=== PATIENT | female | born 1940 | race Caucasian/White ===

== ENCOUNTER 2022-04-28 09:49 | Outpatient (CLI) | payer MEDICARE, SELFPAY ==
[2022-04-28 11:22] LABS: Albumin* 4.6 g/dL (3.3-5.0); Chloride* 108 mmol/L (96-114); Potassium* 4.3 mmol/L (3.6-5.1); Sodium* 140 mmol/L (135-149)
[2022-04-28 11:25] LABS: Blood Urea Nitrogen* 36 mg/dL (7-30); Carbon Dioxide* 18 mmol/L (20-32); Creatinine* 1.9 mg/dL (0.5-1.5); Estimated Glomerular Filt Rate 26 ml/min; Glucose* 118 mg/dL (60-115)
[2022-04-28 11:26] LABS: Calcium* 9.5 mg/dL (8.4-10.6); Iron* 54 ug/dL (37-170); Phosphorus* 4.2 mg/dL (2.5-4.5); Uric Acid* 8.5 mg/dL (2.2-8.4)
[2022-04-28 11:35] LABS: Percent Iron Saturation 12 % (20-50); Total Iron Binding Capacity 451 ug/dL (265-497)
[2022-04-28 11:50] LABS: Creatinine Urine 42.5 mg/dL
[2022-04-28 12:01] LABS: Ferritin* 11.5 ng/mL (11.1-264.0)
[2022-04-28 12:24] LABS: Microalbumin Creatinine Ratio 870 mg/g (0-30); Microalbumin Urine 37 mg/dL
== END 2022-04-28 09:50 | disposition home or self-care (01) ==
PROVIDERS: Visit Provider Internal Medicine Nephrology
DX: I10 Essential (primary) hypertension (principal); N18.9 Chronic kidney disease, unspecified; R53.83 Other fatigue
CPT/HCPCS: 80069; 82043; 82570; 82728; 83540; 83550; 84550; 87086

== ENCOUNTER 2022-10-16 10:05 | Outpatient (CLI) | payer MEDICARE, SELFPAY | END 2022-10-16 10:06 | disposition home or self-care (01) | LOC: NFLDREF 10-19 20:00 | PROVIDERS: Visit Provider Internal Medicine Nephrology | DX: D63.1 Anemia in chronic kidney disease (principal); I10 Essential (primary) hypertension; N18.32 Chronic kidney disease, stage 3b | CPT/HCPCS: 80061; 80069; 82043; 82310; 82570; 82728; 83540; 83550; 83970; 84450; 84460; 84550; 87086 ==

== ENCOUNTER 2023-04-23 10:45 | Outpatient (CLI) | payer MEDICARE, SELFPAY | END 2023-04-23 10:46 | disposition home or self-care (01) | LOC: NFLDREF 04-27 06:48 | PROVIDERS: Visit Provider Internal Medicine Nephrology | DX: D63.1 Anemia in chronic kidney disease (principal); I10 Essential (primary) hypertension; N18.32 Chronic kidney disease, stage 3b | CPT/HCPCS: 80069; 82043; 82310; 82570; 83970; 84550 ==

== ENCOUNTER 2023-10-19 10:51 | Outpatient (CLI) | payer MEDICARE, SELFPAY | END 2023-10-19 10:52 | disposition home or self-care (01) | LOC: NFLDREF 11-09 12:43 | PROVIDERS: Visit Provider Internal Medicine Nephrology | DX: N18.32 Chronic kidney disease, stage 3b (principal); D63.1 Anemia in chronic kidney disease; R82.90 Unspecified abnormal findings in urine | CPT/HCPCS: 80069; 82043; 82306; 82310; 82570; 82728; 83540; 83550; 83970; 84450; 84460; 84550; 86140; 87086 ==

== ENCOUNTER 2024-03-29 06:45 | Outpatient (CLI) | payer MEDICARE, SELFPAY | END 2024-03-29 06:46 | disposition home or self-care (01) | PROVIDERS: Visit Provider Family Medicine | DX: R39.89 Other symptoms and signs involving the genitourinary system (principal); N39.0 Urinary tract infection, site not specified | CPT/HCPCS: 87086 ==

== ENCOUNTER 2024-04-25 09:06 | Outpatient (CLI) | payer MEDICARE, SELFPAY ==
--- OUTSIDE RECORDS SUMMARY | 2024-04-28 07:27 | XMS_ITS | Clinical Summary ---
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 Gender Identity Not on file Sexual Orientation Not on file Last Filed Vital Signs Vital Sign Reading Time Taken Comments Blood Pressure 150/74 09/13/2019 6:00 PM CDT Pulse 66 09/13/2019 6:00 PM CDT Temperature 36.7 ??C (98 ??F) 09/13/2019 4:29 PM CDT Respiratory Rate 16 09/13/2019 4:29 PM CDT Oxygen Saturation 96% 09/13/2019 7:45 PM CDT Inhaled Oxygen Concentration - - Weight - - Height - - Body Mass Index - - Plan of Treatment Not on file Insurance [employer] MEDICARE Care Teams Pest Management Supervisor Relationship Specialty Start Date [place] [address] [address] [place] [address] PCP - General Family Practice 09/13/19
--- OUTSIDE RECORDS SUMMARY | 2024-04-28 07:28 | XMS_ITS | Clinical Summary ---
Author Organization [facility] Address [place], [place] [address] Care Team Providers Care Autocad Name Role Phone Pcp, No Primary Care Provider Unavailabl e Allergies Active Allergy Reactions Criticality Noted Date Comments Rabeprazole *Unknown 01/08/2021 Atorvastatin *Unknown 01/08/2021 Sulfa (Sulfonamide Antibiotics) Nausea Only Tramadol Stomach Upset 11/04/2013 Ezetimibe-Simvastatin *Unknown 01/08/2021 Medications Medication Sig Dispensed Refills Start Date End Date Status aspirin (Aspirin EC) 81 mg enteric coated tablet Take 81 mg by mouth once daily with a meal. 02/10/2011 Active ascorbic acid chewable (Vitamin C) 500 mg tablet Chew 500 mg by mouth once daily. 06/16/2011 Active prochlorperazine (COMPAZINE) 5 mg tabletIndications:Abdomin al pain, LLQ (left lower quadrant) TAKE 1 TABLET BY MOUTH EVERY 4 HOURS NEEDED FOR NAUSEA AND VOMITING 90 Tablet 10/30/2021 Active triamcinolone (ARISTOCORT; KENALOG) 0.1 % creamIndications:Rash Apply topically to affected area(s) two times daily. 15 g 04/08/2023 Active pravastatin (PRAVACHOL) 20 mg tabletIndications:Pure hypercholesterolemia TAKE 1 TABLET BY MOUTH ONCE DAILY WITH EVENING MEAL 90 Tablet 03/07/2024 Active Active Problems Problem Noted Date Diagnosed Date Hyperparathyroidism due to renal insufficiency 1 Anemia of chronic renal failure 05/13/2022 Renal osteodystrophy 08/21/2020 Renal agenesis, unilateral 08/21/2020 Sleep related leg cramps 06/06/2019 BERTO (generalized anxiety disorder) 01/15/2019 Chronic kidney disease, stage III (moderate) Pure hypercholesterolemia 02/10/2011 Essential (primary) hypertension 02/10/2011 GERD (gastroesophageal reflux disease) 1 Osteopenia 02/10/2011 Refractive error 04/15/2010 Senile nuclear sclerosis 04/15/2010 Resolved Problems Problem Noted Date Diagnosed Date Resolved Date Acquired absence of kidney 02/17/2019 1 Encounters Date Type Department Care Team Description 03/23/2024 10:20 AM CDT Office Visit [facility] [address] [place] [address] Burt Ceja, OD Eye Exam (CEE) 03/23/2024 Travel 03/03/2024 Refill [facility] [address] [place] [address] José Miguel Morton MD Refill Request (Pravastatin) from Last 3 Months Immunizations Name Administration Dates Next Due Influenza RIV4 (Age 18+ Year s) PRESERV FREE 03/27/2020,03/22/2019 Influenza, High-dose Inactivated 018,03/20/2017,03/18/2016,2012,03/19/2012 Influenza, High-dose Quadriv alent Inactivated 03/30/2022,02/26/2021,04/08/2013,2011 Influenza, IIV3 (Age 6-35 mos) 03/11/2010 Influenza, IIV3 (Age >=3 years) 03/18/2011,03/09 Influenza, Inactivated AIIV4 (Age 65+ Years) Preserv Free 04/08/2023 Pneumococcal Conj 20-valent (Prevnar 20) 04/08/2023 Pneumococcal Poly,23-Valent (Pneumovax) 03/22/2019 Pneumococcal conj 13-Valent (Prevnar 13) 03/31/2018,05/24/2015 Td, Preservative Free (age > = 7 Years) 03/15/2006 Family History Medical History Relation Name Comments Diabetes type II Father Diabetes type II Mother Hypertension Mother Stroke Mother Cancer-breast No Family History Relation Name Status Comments Father Mother Social History Tobacco Use Types Packs/Day Years Used Date Smoking Tobacco: Former Smokeless Tobacco: Never Comments:40 years Alcohol Use Standard Drinks/Week Comments Yes 0 (1 standard drink = 0.6 oz pur e alcohol) rare PHQ-2 Answer Date Recorded PHQ-2 TOTAL SCORE 1 04/08/2023 Social Connections Answer Date Recorded Frequency of Communication with Friends and Fami ly 0 08/09/2021 Financial Resource Strain Answer Date R ecorded Difficulty of Paying Living Expenses 3 08/09/2021 Difficulty of Paying Living Expenses Not on file 08/09/2021 Food Insecurity Answer Date Recorded Worried About Running Out of Food in the Last Ye ar 1 08/09/2021 Transportation Needs Answer Date Record ed Lack of Transportation (Medical) 1 08/09/2021 Housing Stability Answer Date Recorded Unable to Pay for Housing in the Last Year 1 08/09/2021 Sex and Gender Information Value Date Recorded Sex Assigned at Not on file Gender Identity Not on file Sexual Orientation Not on file Obstetrics History Last Filed Vital Signs Vital Sign Reading Time Taken Comments Blood Pressure 124/64 04/08/2023 1:59 PM CDT Pulse 68 04/08/2023 1:59 PM CDT Temperature 36.6 ??C (97.8 ??F) 08/24/2022 2:07 PM CS T Respiratory Rate 16 08/24/2022 2:07 PM FRESH FOOD MANAGER Oxygen Saturation 98% 11/10/2021 9:03 AM CDT Inhaled Oxygen Concentration - - Weight 48.5 kg (107 lb) 04/08/2023 1:59 PM CDT Height 149.9 cm (4' 11) 04/08/2023 1:59 PM CDT Body Mass Index 21.61 04/08/2023 1:59 PM CDT Plan of Treatment Health Maintenance Due Date Last Done Comments Tdap 1950 Zoster (shingles) series for age 50+ (1 of 2) 1989 RSV vaccine for adults or (1 - 1-dose 75+ series) 2014 Tetanus booster 03/15/2016 03/15/2006 COVID-19 vaccine series ( season) 2024 02/26/2021, 01/14/2021 Influenza for age 65+ 02/21/2024 04/08/2023 , 03/30/2022, 02/26/2021, Additional history exists BMI (ht and wt on same day) for age 18+ 04/08/2024 04/08/2023, 11/11/2021, 01/10/2021 Depression screening for age 12+ 04/08/2024 04/08/2023, 11/11/2021, 01/10/2021 Medicare Wellness for age 65+ 04/08/2024 04/08/2023, 11/11/2021 DEXA/DXA scan for age 65+ Completed 11/11/2021 Pneumococcal series for age 65+ Completed 04/08/2023, 03/22/2019, 03/31/2018, Additional history exists Procedures Procedure Name Priority Date/Time Associated Diagnosis Comments XR DXA BONE DENSITY 2 SITES AXIAL Routine 11/11/2021 8:35 AM CDT Menopause from Last 3 Months or Most Recently Relevant to Health Maintenance Results * XR DXA BONE DENSITY 2 SITES AXIAL [25157.1] (11/11/2021 8:35 AM CDT) Anatomical Region Laterality Modality Spine, HIPS, HIPL, HIPR Computed Radiography 11/11/2021 8:35 AM CDT Impressions 11/11/2021 10:08 AM CDT OSTEOPOROSIS. T score meets the World Health Organization (WHO) criteria for osteoporosis at one or more measured sites. The risk of osteoporotic fracture increased approximately two-fold for each SD decrease in T-score. Narrative 11/11/2021 10:08 AM CDT For Patients: As a result of the Cures Act, medical imaging exams and procedure reports are released immediately into your electronic medical record. You may view this report before your referring provider. If you have questions, please contact your health care provider. EXAM: XR DXA BONE DENSITY 2 SITES AXIAL [facility] DATE/TIME: 11/11/2021 8:35 AM INDICATION: B. Height loss greater than 1 inch - R29.890. Menopause. COMPARISON: 06/03/2018. TECHNIQUE: Dual-energy x-ray absorptiometry performed with routine technique. FINDINGS: Lumbar Spine: L1-L4: BMD: 1.117 g/cm2. T-score: -0.5. Z-score: 1.9 RIGHT Hip Total: BMD: 0.625 g/cm2. T-score: -3.0. Z-score: -0.5 RIGHT Hip Femoral neck: BMD: 0.683 g/cm2. T-score: -2.6. Z-score: 0.1 LEFT Hip Total: BMD: 0.702 g/cm2. T-score: -2.4. Z-score: 0.1 LEFT Hip Femoral neck: BMD: 0.667 g/cm2. T-score: -2.7. Z-score: -0.1 WHO Criteria: Normal: T score at or above -1 SD Osteopenia: T score between -1 and -2.5 SD Osteoporosis: T score at or below -2.5 SD COMPARISON: There has been a 3.6% decrease in lumbar spine BMD. There has been a 9.4% decrease in bilateral hip BMD. FRAX Results: Not applicable due to Osteoporosis. Procedure Note Brian Brown MD - 11/11/2021 For Patients: As a result of the Cures Act, medical imagingexams and procedure reports are released immediately into your electronicmedical record. You may view this report before your referring provider.If you have questions, please contact your health care provider. EXAM: XR DXA BONE DENSITY 2 SITES AXIAL LOC[facility] DATE/TIME: 11/11/2021 8:35 AM INDICATION: B. Height loss greater than 1 inch - R29.890. Menopause. COMPARISON: 06/03/2018. TECHNIQUE: Dual-energy x-ray absorptiometry performed with routinetechnique. FINDINGS: Lumbar Spine: L1-L4: BMD: 1.117 g/cm2. T-score: -0.5. Z-score: 1.9 RIGHT Hip Total: BMD: 0.625 g/cm2. T-score: -3.0. Z-score: -0.5 RIGHT Hip Femoral neck: BMD: 0.683 g/cm2. T-score: -2.6. Z-score: 0.1 LEFT Hip Total: BMD: 0.702 g/cm2. T-score: -2.4. Z-score: 0.1 LEFT Hip Femoral neck: BMD: 0.667 g/cm2. T-score: -2.7. Z-score: -0.1 WHO Criteria: Normal: T score at or above -1 SD Osteopenia: T score between -1 and -2.5 SD Osteoporosis: T score at or below -2.5 SD COMPARISON: There has been a 3.6% decrease in lumbar spine BMD. There hasbeen a 9.4% decrease in bilateral hip BMD. FRAX Results: Not applicable due to Osteoporosis. IMPRESSION: OSTEOPOROSIS. T score meets the World Health Organization (WHO) criteriafor osteoporosis at one or more measured sites. The risk of osteoporoticfracture increased approximately two-fold for each SD decrease in T-score. José Miguel Morton MD DEXA from Last 3 Months or Most Recently Relevant to Health Maintenance Care Teams Autocad Relationship Specialty Start Date End Date Pcp, No . PCP - General 01/07/24
--- OUTSIDE RECORDS SUMMARY | 2024-04-28 07:28 | XMS_ITS | Encounter Summary ---
Author Organization [facility] Address [address] [place] [address]. 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 HISTORY OF PRESENT ILLNES S: The patient is a 62 yo white female, who was in her usual state of health until this past week. She had 2 distinct episodes of interscapular pain described as a tightness without radiation associat ed with minimal activity that resolved spontaneously. Today while running down the stairs she develo ped substernal chest tightness. She denies any radiation, but not does recall having some numbness i n both of her jaws related to the interscapular pain episodes that she had earlier in the week. She n otes now that she does not have that with this episode. She does admit to nausea. She denies any fe chris, chills, cough or congestion. She denies any abdominal pain, vomiting, diarrhea, constipation or urinary complaints. There is no change in pain with palpation, movement or inspiration. Denies any trauma. PAST MEDICAL HISTORY: Hypercholesterolemia. MEDICATIONS: Zocor, multivitamins, aspirin, fish oil. ALLERGIES: Sulfa. SOCIAL HISTORY: No alcohol, no tobacco. The patient is retired; she is . FAMILY HISTORY: Noncontributory and negative for cardiovascular disease. REVIEW OF SYS TEMS: See HPI; all other systems are negative. PHYSICAL EXAMINATION: Blood pressure 153/80, pulse 109, respiratory rate 20, temperature 97.8. Generally, the patient is symptom free on arrival statin g that her symptoms lasted perhaps 5 minutes today. Color is good. O2 sats 98% on room air. SKIN is warm and dry. CHEST is nontender to palpation, normal contour; lungs show respiratory rate to be 20 and unlabored; breath sounds equal and clear bilaterally; no wheezes or rales heard. HEART - regular rate and rhythm without murmur or rub. BACK - no tenderness to palpation. ABDOMEN - bowel sounds ar e present, soft, nondistended, nontender, no palpable hepatosplenomegaly or masses. EXTREMITIES - no palpable cords; calves nontender; no pedal edema. NEUROLOGIC exam is intact. PSYCHIATRIC exam is n ormal. ED COURSE: EKG - normal sinus rhythm, 0.5-1.[address] depression in V2 through V6. No ST elev ations. Chest x-ray - normal heart size, lungs clear, white blood count 6,900, hemoglobin 14.5, lipa se 205, amylase 108. Myoglobin 57, troponin less than 0.07. Platelets 295,000. Alkaline phosphatase 53, ALT 14, AST 19, bilirubin 0.5, BUN 18, calcium 9.8, chloride 106, CO2 23, creatinine 1.2, glucos e 136, potassium 3.2, sodium 142. Ultrasound of the gallbladder shows a thickened gallbladder wall a t 4.6 mm, common bile duct normal at 4 mm, no stones; generally absent right kidney; cyst in the low er pole of her left kidney; liver is slightly enlarged. DIAGNOSIS: Chest pain, anterior unstable an kirstin versus myocardial infarction; mild hypokalemia; congenitally absent right kidney. DISPOSITION: The patient is to be admitted to ICU in the care of Dr. Lemus. [id number] _ DONAVAN GODFREY MD [place]: Document: [id number] [place], [place] Name: ERICA TRUJILLO EMERGENCY ROOM ENCOUNTER Page 2 of 2 LCN: [facility]U DSC: [place], [place] Name: MR#: : Admit Date: JUSTIN TRUJILLO [id number] 11/20/2002 Doctor: DONAVAN GODFREY MD EMERGENCY ROOM ENCOUNTER Page 1 of 2 documented in this encounter Plan of Treatment Not on file documented as of this encounter Visit Diagnoses Diagnosis ER Visit- Primary documented in this encounter Care Teams Pressfitter Relationship Specialty Start [place] [address] [place] [address] PCP - General 08/11/11 09/12/19 [place] [address] [place] [address] PCP - General Family Practice 09/13/19 documented as of this encounter
--- OUTSIDE RECORDS SUMMARY | 2024-04-28 07:28 | XMS_ITS | Clinical Summary ---
Author Organization [facility] Address [address] [place] [address] Care Team Providers Care Circular Saw Edge Fuser Name Role Phone Unavailable Primary Care Provider Unavailabl e Source Comments Patient records contain information from all sites at [facility]. For routine questions regarding patient records, call [phone] during business hours, M-F 8:00 AM - 5:00 PM Central Time. Record requests for emergency care only can be directed to [phone] at any time.[facility] Medications pravastatin (PRAVACHOL) 20 mg tablet Take 1 tablet by mouth at bedtime. 04/30/2022 Active Active Problems Problem Noted Date Diagnosed Date Anemia Of Chronic Renal Disease 05/13/2022 Hyperparathyroidism Renal Secondary 05/07/2021 Chronic Kidney Disease (CKD) , Stage 3b Glomerular Filtration Rate (GFR) 30 To 44 08/21/2020 Solitary Kidney Congenital 08/21/2020 Osteodystrophy Renal 08/21/2020 Hypertensive Chronic Kidney Disease With Stage 1 Through Stage 4 Chronic Kidney Disease, Or Unspecified Chronic Kidney Disease 10/17/2014 Overview (11/11/2016): Hypertension (HTN) NOS Social History Tobacco Use Types Packs/Day Years Used Date Smoking Tobacco: Former Nutrition Answer Date Recorded Nutrition: EVOO Fat Source Unknown 08/16 Nutrition: Servings of Fruits/Vegetables per Day Not on file 08/16/2020 Dental Answer Date Recorded Dental: Regular Dentist Unknown 08/16/19 21 Comments Unknown Sex and Gender Information Value Date Recorded Sex Assigned at Not on file Legal Sex Female 9:49 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 Oxygen Saturation - - Inhaled Oxygen Concentration - - Weight 51.9 kg (114 lb 6.7 oz) 05/03/2015 4:24 PM GAME FARM SUPERVISOR Vital sign result from Clinical Notes. Height 147 cm (4' 9.87) 05/03/2015 4:2 4 PM GAME FARM SUPERVISOR Vital sign result from Clinical Notes. Body Mass Index 24.02 05/03/2015 4:24 PM GAME FARM SUPERVISOR Plan of Treatment Upcoming Encounters Date Type Department Care Team (Latest Contact Info) Description 05/18/2024 10:00 AM GAME FARM SUPERVISOR Clinical Communication Virtual Review in [place], [place] [address] [place] [address] 05/23/2024 2:30 PM GAME FARM SUPERVISOR Virtual Visit Division of Nephrology and Hypertension in [place], [place] [address] [place] [phone] Giovanni Russo Jr., D.O. [address] [place] [phone] Health Maintenance Due Date Last Done Comments Zoster Vaccines (1 of 2) 1959 DTaP,Tdap,and Td Vaccines (1 - Tdap) 03/16/2006 03/15/2006 RSV vaccine - (32-36 weeks) or 60+ years (1 - 1-dose 75+ series) 2014 Creatinine Level (Kidney Function Test) 08/09/2022 08/09/2021, 09/13/2019, 02/14/2019 Potassium Level 08/09/2022 08/09/2021, 09/13/2019 Sodium Level 08/09/2022 08/09/2021, 09/13/2019 Depression Screening (Annual PHQ-2) 06/22/2023 Fall Risk Screen (Annual) 06/22/2023 COVID-19 Vaccine ( - season) 2024 02/26/2021, 01/14/2021 Influenza Vaccine (#1) 2024 3, 03/30/2022, 02/26/2021, Additional history exists Office Visit for Blood Pressure Check / Re-check 04/27/2024 04/27/2023 Pneumococcal vaccine (65+ years) Completed 04/08/2023, 03/22/2019, 03/31/2018, Additional history exists IPV Vaccines Aged Out No longer eligi ble based on patient's age to complete this topic Insurance [facility]
--- OUTSIDE RECORDS SUMMARY | 2024-04-28 07:28 | XMS_ITS | Referral Summary ---
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
--- OUTSIDE RECORDS SUMMARY | 2024-04-28 07:28 | XMS_ITS ---
Author Organization [facility] Address [address] [place] [address] Care Team Providers Care Electrification Adviser Name Role Phone Unavailable Unavailable Unavailable Surgery Details Not on file Complications Check Surgery Details section. Procedure Estimated Blood Loss Check Surgery Details section. Procedure Findings Check Surgery Details section. Procedure Specimens Taken Check Surgery Details section.
--- OUTSIDE RECORDS SUMMARY | 2024-04-28 07:28 | XMS_ITS | Referral Summary ---
Author Organization [facility] Address [address] [place] [address] Care Team Providers Care Setup Technician Name Role Phone Unavailable Primary Care Provider Unavailabl e Source Comments Patient records contain information from all sites at [facility]. For routine questions regarding patient records, call [phone] during business hours, M-F 8:00 AM - 5:00 PM Central Time. Record requests for emergency care only can be directed to [phone] at any time.[facility] Medications pravastatin (PRAVACHOL) 20 mg tablet Take [...] on file Legal Sex Female 9:49 AM INSTRUMENT TESTER Gender Identity Not on file Sexual Orientation Not on file Last Filed Vital Signs Vital Sign Reading Time Taken Comments Blood Pressure 121/65 04/27/2023 1:48 PM INSTRUMENT TESTER Pulse 74 04/27/2023 1:48 PM INSTRUMENT TESTER Temperature - - Respiratory Rate 20 05/03/2015 4:24 PM INSTRUMENT TESTER Vital sign result from Clinical Notes. Oxygen Saturation - - Inhaled Oxygen Concentration - - Weight 51.9 kg (114 lb 6.7 oz) 05/03/2015 4:24 PM INSTRUMENT TESTER Vital sign result from Clinical Notes. Height 147 cm (4' 9.87) 05/03/2015 4:2 4 PM INSTRUMENT TESTER Vital sign result from Clinical Notes. Body Mass Index 24.02 05/03/2015 4:24 PM INSTRUMENT TESTER Plan of Treatment Upcoming Encounters Date Type Department Care Team (Latest Contact Info) Description 05/18/2024 10:00 AM INSTRUMENT TESTER Clinical Communication Virtual Review in [place], [place] [address] [place] [address] 05/23/2024 2:30 PM INSTRUMENT TESTER Virtual Visit Division of Nephrology and Hypertension in [place], [place] [address] [place] [phone] Giovanni Russo Jr., D.O. [address] [place] [id number] Insurance [facility]
== END 2024-04-25 09:07 | disposition home or self-care (01) ==
LOC: NFLDREF 04-28 07:26
PROVIDERS: PCP Family Medicine; Referring Provider Family Medicine; Visit Provider Family Medicine
DX: I10 Essential (primary) hypertension (principal); N18.32 Chronic kidney disease, stage 3b; D63.1 Anemia in chronic kidney disease; E78.5 Hyperlipidemia, unspecified
CPT/HCPCS: 80053; 80061; 82306

== ENCOUNTER 2024-08-16 14:35 | Outpatient (CLI) | payer MEDICARE, SELFPAY | END 2024-08-16 14:36 | disposition home or self-care (01) | LOC: NFLDREF 14:36 | PROVIDERS: PCP Family Medicine; Visit Provider Family Medicine | DX: I10 Essential (primary) hypertension (principal); D63.1 Anemia in chronic kidney disease; Q60.0 Renal agenesis, unilateral | CPT/HCPCS: 80048 ==

== ENCOUNTER 2024-09-06 10:15 | Outpatient (CLI) | payer MEDICARE, SELFPAY | END 2024-09-06 10:16 | disposition home or self-care (01) | LOC: NFLDREF 09-07 02:54 | PROVIDERS: PCP Family Medicine; Referring Provider Family Medicine; Visit Provider Family Medicine | DX: I12.9 Hypertensive chronic kidney disease with stage 1 through stage 4 chronic kidney disease, or unspecified chronic kidney disease (principal); N18.32 Chronic kidney disease, stage 3b; D63.1 Anemia in chronic kidney disease; E78.5 Hyperlipidemia, unspecified | CPT/HCPCS: 80048; 82728 ==

== ENCOUNTER 2024-11-02 13:28 | Outpatient (CLI) | payer MEDICARE, SELFPAY ==
--- NOTE | 2024-11-02 14:00 | CRLHL7_ITS ---
For Patients: As a result of the Century Cures Act, medical imaging exams and procedure reports are released immediately into your electronic medical record. You may view this report before your referring provider. If you have questions, please contact your health care provider. XR DXA Bone Mineral Density (BMD) Current height (in): 49.0. Weight (lb): 106.0. Menopause age: 54. Ethnicity: White. 1. Have you had a previous hip or vertebral fracture? No. 2. Have you had any fractures during your adult life which did not result from significant trauma (e.g., auto accident)? No. 3. Did either of your parents have a hip fracture? No. 4. Do you smoke? No. 5. Have you ever taken Glucocorticoids? No. 6. Do you have rheumatoid arthritis? No. 7. Do you have secondary osteoporosis? Yes. 8. Do you drink 3 or more alcoholic drinks per day? No. 9. Are you being treated for osteoporosis? No. 10. Have you ever taken any of the following medications: Actonel, Evista, Fosamax, Miacalcin, Reclast, Boniva, Forteo, HRT (i.e. estrogen/hormone therapy), Protelos, Prolia, Vitamin D, Calcium, other ??? please specify. ANSWER: Yes, Vitamin D, Calcium 11. Do you have any of the following medical conditions: Anorexia or bulimia, asthma or emphysema, end stage renal disease, hyperparathyroidism, any seizure disorders, cancer, inflammatory bowel diseases, hysterectomy, other ??? please specify. ANSWER: No. 12. What was your maximum height (inches)? 60. 13. Do you perform weight bearing exercise regularly? No. 14. Do you regularly consume dairy products? Yes. 15. Do you drink caffeinated beverages? Yes. If female: 16. At what age did your period start? 12. 17. Are you premenopausal? No. 18. How many full term pregnancies have you had? 3. 19. Have you ever missed your period for more than 6 months in a row (not including or menopause)? No. TECHNIQUE: Bone mineral density study was performed using the [employer]. FINDINGS: The results of the study expressed as bone mineral density (BMD) are as follows: Lumbar spine L1 to L4: BMD: 1.014 g/cm2. T-score: -0.3. Z-score: 2.6. Neck Left: BMD: 0.540 g/cm2. T-score: -2.8 . Z-score: -0.3. Right: BMD: 0.618 g/cm2. T-score: -2.1 . Z-score: 0.4. Total Left: BMD: 0.694 g/cm2. T-score: -2.0 . Z-score: 0.3. Right: BMD: 0.668 g/cm2. T-score: -2.2 . Z-score: 0.1. IMPRESSION: Osteoporosis. *Comparison exams done prior to 11/2019 were performed on different unit, [employer]. Socrates Sarah M.D. Diagnostic Radiologist [email or web address] FRANSICO/chi Transcribed: 8:00 a.m. JR/Dictated by: Socrates Sarah MD @ 11/03/2024 9:34:00 AM (Electronically Signed)
--- NOTE | 2024-11-02 14:40 | CRLHL7_ITS ---
For Patients: As a result of the Century Cures Act, medical imaging exams and procedure reports are released immediately into your electronic medical record. You may view this report before your referring provider. If you have questions, please contact your health care provider. COMPARISON: 11/28/2021 TECHNIQUE: Digital mammogram in CC and MLO projections including computer-aided detection (CAD) and tomosynthesis. BREAST COMPOSITION: There are scattered areas of fibroglandular density. FINDINGS: No suspicious findings. ASSESSMENT: BI-RADS 2 Benign RECOMMENDATION: Annual screening mammogram. A lay language report of this examination will be provided to the patient. Dictated by: Socrates Sarah MD @ 11/04/2024 10:00:39 (Electronically Signed)
== END 2024-11-02 13:29 | disposition home or self-care (01) ==
LOC: RAD 13:30
PROVIDERS: PCP Family Medicine; Visit Provider Family Medicine
DX: Z12.31 Encounter for screening mammogram for malignant neoplasm of breast (principal); M81.0 Age-related osteoporosis without current pathological fracture
CPT/HCPCS: 77063; 77067; 77080

== ENCOUNTER 2024-12-01 10:31 | Outpatient (CLI) | payer MEDICARE, SELFPAY | END 2024-12-01 10:32 | disposition home or self-care (01) | LOC: NFLDREF 12-02 01:25 | PROVIDERS: PCP Family Medicine; Referring Provider Family Medicine; Visit Provider Internal Medicine Nephrology | DX: N18.32 Chronic kidney disease, stage 3b (principal); I10 Essential (primary) hypertension; D63.1 Anemia in chronic kidney disease; Z86.39 Personal history of other endocrine, nutritional and metabolic disease; E78.5 Hyperlipidemia, unspecified; R53.83 Other fatigue | CPT/HCPCS: 80061; 80069; 82043; 82570; 84450; 84460; 84550 ==

== ENCOUNTER 2025-01-02 13:20 | Outpatient (CLI) | payer MEDICARE, SELFPAY | END 2025-01-02 13:21 | disposition home or self-care (01) | LOC: NFLDREF 13:21 | PROVIDERS: PCP Family Medicine; Visit Provider Internal Medicine Nephrology | DX: N18.32 Chronic kidney disease, stage 3b (principal); N39.0 Urinary tract infection, site not specified | CPT/HCPCS: 82043; 82570; 87086 ==

== ENCOUNTER 2025-05-23 13:44 | Outpatient (CLI) | payer MEDICARE, SELFPAY | END 2025-05-23 13:45 | disposition home or self-care (01) | PROVIDERS: PCP Family Medicine; Visit Provider Family Medicine | DX: D63.1 Anemia in chronic kidney disease (principal); N18.32 Chronic kidney disease, stage 3b; R00.2 Palpitations; R03.0 Elevated blood-pressure reading, without diagnosis of hypertension | CPT/HCPCS: 80053; 83970; 84439; 84443 ==

== ENCOUNTER 2025-05-24 14:43 | Outpatient (CLI) | payer MEDICARE, SELFPAY | END 2025-05-24 14:44 | disposition home or self-care (01) | LOC: NFLDREF 05-25 13:34 | PROVIDERS: PCP Family Medicine; Referring Provider Family Medicine; Visit Provider Family Medicine | DX: M17.0 Bilateral primary osteoarthritis of knee (principal); N25.81 Secondary hyperparathyroidism of renal origin | CPT/HCPCS: 82306; 84480 ==

== ENCOUNTER 2025-06-12 14:52 | Emergency (ER) | payer MEDICARE, SELFPAY ==
--- OUTSIDE RECORDS SUMMARY | 2011-07-09 05:30 | XMS_ITS | Continuity of Care Document ---
Author Organization [facility] Address [address] [address] [place] [address] Phone Care Team Providers Care Boat Canvas Installer Name Role Phone Unavailable Unavailable Unavailable Allergies, Adverse Reactions, Alerts Substance Reaction Status Criticality Sulfa (Sulfonamide Antibiotics) Active No Information Medications Medication Instructions Dosage Effective Dates (start - stop) Status Comments MiralaxBisacodylMagCit Colon Prep Use as directed - Active lisinopril 2.5 mg Tab take 1 tablet (2.5MG) by oral route every day 2.5 MG - Active aspirin 81 mg Tab take 2 Tablet (162MG) by oral route every day 162 MG - Active Procedures Procedure Date CRS Charges Advance Directives Directive Yes / No Effective Date File Name Resuscitation Not Answered N/A N/A Life Support Not Answered N/A N/A Intubation Not Answered N/A N/A Antibiotics Not Answered N/A N/A IV Fluid Support Not Answered N/A N/A Tube Feed Not Answered N/A N/A Other Directive N/A N/A WARNING:The information contained in this section is historical and is provided for information only and does not constitute a legal document or any assurance that the information is still accurate. Please verify the information with the pagan of the legal document before using it for clinical purposes. Encounters Encounter Description Practice Location Reason(s) For Visit Diagnoses Date Provider Providers Copied on Encounter [facility], [address] [address], [place], [id number], [place] tel:[phone] Boy [facility] Colon Cancer ScreeningColo n Cancer Screening 2 No Information [facility] [place] [address] [address], [place], [id number], [place] tel:[phone] [facility] No Information No Information Referring Provider: Referral Self, USE FOR SELF REFERRALS. Family History Family Member Type Diagnosis Age At Onset No Information Payers Payer name Insurance type Covered constitution party ID Authoriza tion(s) No Information Social History Type Description Quantity Date Captured Comments Alcohol Use Details Unknown Caffeine Use Details Unknown Tobacco Use Status No Information Smoking Status No Information Sex Female Chief Complaint And Reason For Visit No Information Reason For Referral Reason For Referral No Information History Of Present Illness Encounter Date Complaint History Of Prese nt Illness No Information Functional Status Date Functional Assessmen t No Information Instructions Date Instruction Additional Infor mation No Information Assessments Type Assessment Date No Information Patient Care Teams Name Effective Dates (start - stop) Status Members No Information
--- OUTSIDE RECORDS SUMMARY | 2025-06-12 14:58 | XMS_ITS | Clinical Summary ---
Author Organization [facility] [facility] Address [facility] [place] [address] Care Team Providers Care Spudder Name Role Phone Pcp, No Primary Care Provider Unavailabl e Allergies Active AllergyReactionsCriticalityNoted DateCommentsRabeprazole*Unknown 01/08/2021torvastatin*Paekjvu4101/08/2021ulfa (Sulfonamide Antibiotics)Nausea Only04/15/2010TramadolStomach Upset11/04/2013Ezetimibe-Simvastatin*Unknown 01/08/2021 Medications MedicationSigDispense QuantityRefillsLast FilledStart DateEnd DateStatus aspirin (Aspirin EC) 81 mg enteric coated tablet Take 81 mg by mouth once daily with a meal.02/10/2011ctive ascorbic acid chewable (Vitamin C) 500 mg tablet Chew 500 mg by mouth once daily.06/16/2011ctive prochlorperazine (COMPAZINE) 5 mg tablet Indications:Abdominal pain, LLQ (left lower quadrant)TAKE 1 TABLET BY MOUTH EVERY 4 HOURS NEEDED FOR NAUSEA AND VOMITING 90 Tablet 10/30/2021ctive triamcinolone (ARISTOCORT; KENALOG) 0.1 % cream Indications:RashApply topically to affected area(s) two times daily. 15 g 04/08/2023ctive pravastatin (PRAVACHOL) 20 mg tablet Indications:Pure hypercholesterolemiaTAKE 1 TABLET BY MOUTH ONCE DAILY WITH EVENING MEAL 90 Tablet 03/07/2024ctive Active Problems ProblemNoted DateDiagnosed DateHyperparathyroidism due to renal insufficiency 04/08/2023nemia of chronic renal mkzxsid6605/13/2022enal osteodystrophy 03/02/2021Renal agenesis, puioazpbph98/02/2021leep related leg htgsmr1708/07/2018 BERTO (generalized anxiety disorder)01/15/2019Chronic kidney disease, stage III (moderate)10/05/2014Pure jvnnhvdcbtpohxzzaktg89/22/2011Essential (primary) mtpdptnrdzli48/22/2011GERD (gastroesophageal reflux disease)02/10/2011Osteopenia 02/10/2011Refractive error04/15/2010Senile nuclear cryffdsof55/25/2010 Resolved Problems ProblemNoted DateDiagnosed DateResolved DateAcquired absence of igupfu7302/17/2019 04/08/2023 Encounters DateTypeDepartmentCare ZfajWevirrggeky65/15/2025Orders Only [facility] [address] [place] [address] Ambika Molina 1 scan: (1-Ord) ZIO106/25/2024 11:00 AM CSTOffice Visit [facility] [address] [place] [address] Miguelito Hernadez, OD Eye Exam (Comprehensive eye exam)04/25/2025Travelfrom Last 3 Months Immunizations ImmunizationAdministration DatesNext DueInfluenza RIV4 (Age 18+ Years) PRESERV FREE03/27/2020,03/22/2019Influenza, High-dose Ozlchqdtzth12/09/2018,03/20/2017, 03/18/2016,04/08/2013,03/19/2012Influenza, High-dose Quadrivalent Inactivated 03/30/2022,02/26/2021,04/08/2013,03/19/2012Influenza, IIV3 (Age 6-35 mos) 03/11/2010Influenza, IIV3 (Age >=3 years)03/18/2011,03/09/2009Influenza, Inactivated AIIV4 (Age 65+ Years) Preserv Free3Pneumococcal Conj 20- valent (Prevnar 20)3Pneumococcal Poly,23-Valent (Pneumovax)03/22/2019 Pneumococcal conj 13-Valent (Prevnar 13)03/31/2018,05/24/2015Td, Preservative Free (age >= 7 Years)03/15/2006 Family History Medical HistoryRelationNameCommentsDiabetes type IIFatherDiabetes type IIMother HypertensionMotherStrokeMotherCancer-breastNo Family HistoryRelationNameStatus CommentsFatherDeceasedMother Social History Tobacco UseTypesPacks/DayYears UsedDateSmoking Tobacco: FormerSmokeless Tobacco: Never Comments:40 years Alcohol UseStandard Drinks/WeekCommentsYes0 (1 standard drink = 0.6 oz pure alcohol)rarePHQ-2AnswerDate RecordedPHQ-2 TOTAL SRROI127Social ConnectionsAnswerDate RecordedFrequency of Communication with Friends and Family Financial Resource StrainAnswerDate RecordedDifficulty of Paying Living Glswxtkt360ifficulty of Paying Living ExpensesNot on file 08/09/2021Food InsecurityAnswerDate RecordedWorried About Running Out of Food in the Last Pucx483Transportation NeedsAnswerDate RecordedLack of Transportation (Medical)Housing StabilityAnswerDate RecordedUnable to Pay for Housing in the Last Dhxy012regnantCommentsNoSex and Gender InformationValueDate RecordedSex Assigned at BirthNot on fileLegal SexFemale 07/05/2012 5:32 AM CSTGender IdentityNot on fileSexual OrientationNot on file Last Filed Vital Signs Vital SignReadingTime TakenCommentsBlood Dewevpzw650/6410 1:59 PM CDT Vvncj851404/08/2023 1:59 PM VYHNnnbybkgkuw95.6 ??C (97.8 ??F)08/24/2022 2:07 PM CSTRespiratory Clwz400308/24/2022 2:07 PM CSTOxygen Gttaisvpku53%11/10/2021 9:03 AM CDTInhaled Oxygen Concentration--Zmvjye66.5 kg (107 lb)04/08/2023 1:59 PM CDT Melmjs935.9 cm (4' 11)04/08/2023 1:59 PM CDTBody Mass Index21.6110/ 1:59 PM CDT Plan of Treatment Health MaintenanceDue DateLast DoneCommentsZoster (shingles) series for age 50+ (1 of 2)1989RSV vaccine for adults or (1 - 1-dose 75+ series) 2014Tetanus /24/BMI (ht and wt on same day) for age 18+/, 11/11/2021, 01/10/2021epression screening for age 12+ /, 11/11/2021, 01/10/2021Medicare Wellness for age 65+ /, 11/11/2021OVID-19 vaccine series (2024- season) 509/12/2020, 01/14/2021Influenza Vaccine (#1)/, 03/27/2020, 03/22/2019, Additional history existsDEXA/DXA scan for age 65+ Ridqefybu52/23/2022neumococcal series for age 50+Lkyaedhwn96/18/2023, 03/22/2019, 03/31/2018, Additional history existsHepatitis B series for 19+Aged OutNo longer eligible based on patient's age to complete this topic Procedures Procedure NamePriorityDate/TimeAssociated DiagnosisCommentsEXTENDED HOLTER Lwugmai0505/23/2025 Palpitations XR DXA BONE DENSITY 2 SITES FHWVVYfsacmv34/23/2022 8:35 AM CDT Menopause from Last 3 Months or Most Recently Relevant to Health Maintenance Results * EXTENDED HOLTER (05/23/2025) Narrative Authorizing ProviderResult TypeResult StatusIngrid [facility] HospitalARDIAC SERVICES ORDFinal Result * XR DXA BONE DENSITY 2 SITES AXIAL [04187.1] (11/11/2021 8:35 AM CDT)Anatomical RegionLateralityModalitySpine, HIPS, HIPL, HIPRComputed RadiographySpecimen (Source)Anatomical Location / LateralityCollection Method / VolumeCollection TimeReceived Time11/11/2021 8:35 AM CDT Impressions 11/11/2021 10:08 AM CDT OSTEOPOROSIS. T score meets the World Health Organization (WHO) criteria for osteoporosis at one or more measured sites. The risk of osteoporotic fracture increased approximately two-fold for each SD decrease in T-score. Narrative 11/11/2021 10:08 AM CDT For Patients: As a result of the s Act, medical imaging exams and procedure reports are released immediately into your electronic medical record. You may view this report before your referring provider. If you have questions, please contact your health care provider. EXAM: XR DXA BONE DENSITY 2 SITES AXIAL LOCATION: [facility] DATE/TIME: 11/11/2021 8:35 AM INDICATION: B. [...] For Patients: As a result of the 21st Century Cures Act, medical imagingexams and procedure reports are released immediately into your electronicmedical record. You may view this report before your referring provider.If you have questions, please contact your health care provider. EXAM: XR DXA BONE DENSITY 2 SITES AXIAL LOCATION: [facility] DATE/TIME: 11/11/2021 8:35 AM INDICATION: B. Height [...] two-fold for each SD decrease in T-score. Authorizing ProviderResult TypeResult StatusKennetfritz Morton MDDEXAFinal Result from Last 3 Months or Most Recently Relevant to Health Maintenance Insurance Care Teams Team MemberRelationshipSpecialtyStart DateEnd Date Pcp, No PCP - General01/07/24
--- OUTSIDE RECORDS SUMMARY | 2025-06-12 14:58 | XMS_ITS | Patient Health Record ---
Author Organization [facility] Address [address] [place] [address] Phone [phone] Care Team Providers Care Hvac Commercial Salesperson Name Role Phone Rajwinder Kristen Primary Care Provider Linda DEL ROSARIO MD, [facility] [phone] Allergies Allergen (clinical drug ingredient) Drug/Non Drug Allergy documented on EMR Reaction Allergy Type Onset Date Status rabeprazole Aciphex Unknown Drug Allergy ActivetramadolTramadol HClUnknownDrug AllergyActiveSulfaUnknownDrug Allergy Active Reason For Referral No Information Social History Sex Observation Social History Observation Description Sex Observation Female Social History :Social InfoQuestionAnswerNotesHow often do you consume alcohol?Answer:never Recreational drug useSocial InfoQuestionAnswerNotesDid you ever use recreational drugs?Answer:No Problems Problem Type SNOMED Code ICD Code Dates Problem Status W/U Sta tus Risk Notes Problem Chronic rhinitis (99819510) Chronic rhinitis (472.0) Added On:01/24/2015 Active confirmed ProblemSensory disorder of smell and/or taste (disorder) (9849752792603) Decreased taste and smell (781.1) Added On:01/24/2015 ActiveconfirmedProblemPerforated nasal septum (20893450)Perforated nasal septum (478.19) Added On:01/24/2015 Activeconfirmed Plan Of Treatment No Information Insurance Providers Payer Name Payer Address Payer Phone Subscriber Number Group Number Insured Name Patient Relationship to Insured Coverage Start Date Coverage End Date [id number] [employer]( DO NOT USE) [address] [place], [place] [id number], EllenSelf - patient is the insured Medical (General) History Medical History History ICD Code HTN HypercholesterolemiaGERDOne kidneySurgical History Surgery Date(Month/Year) back surgery 1987
--- OUTSIDE RECORDS SUMMARY | 2025-06-12 14:58 | XMS_ITS | Clinical Summary ---
Author Organization [facility] Address [address] [place] [address] Care Team Providers Care Needle Felt Making Machine Operator Name Role Phone Unavailable Primary Care Provider Unavailabl e Source Comments Patient records contain information from all sites at [facility]. For routine questions regarding patient records, call [phone] during business hours, M-F 8:00 AM - 5:00 PM Central Time. Record requests for emergency care only can be directed to [phone] at any time.[facility] Allergies Active AllergyReactionsCriticalityNoted DateCommentsAtorvastatinOther (see comments)07/28/2014Ezetimibe-SimvastatinOther (see comments)07/28/2014 DdddllaedqhPxfgosp24/27/2015 Question muscle spasms at a higher dose RabeprazoleOther (see comments)07/28/2014Sulfa (Sulfonamide Antibiotics)Nausea Only,GI tdidsnhyxcz46/25/2010TramadolGI wzxdpsuktlj29/16/2014 Medications MedicationSigDispense QuantityRefillsLast FilledStart DateEnd DateStatus pravastatin (PRAVACHOL) 20 mg tablet Take 1 tablet by mouth at bedtime.04/30/2022ctive acetaminophen (TylenoL) 325 mg tablet Take 2 tablets by mouth every 4 (four) hours as needed.07/28/2014ctive ascorbic acid, vitamin C, (Vitamin C) 500 mg chewable tablet Chew 500 mg.06/16/2011ctive aspirin (Renetta Aspirin) 325 mg tablet Take 1 tablet by mouth daily.07/28/2014ctive aspirin [address] tablet Take 81 mg by mouth daily.02/10/2011ctive prochlorperazine (Compazine) 5 mg tablet Take by mouth.10/30/2021ctive triamcinolone (Kenalog) 0.1 % cream Apply topically 2 (two) times a day.04/08/2023ctive pravastatin (PravachoL) 10 mg tablet Take 1 tablet by mouth at bedtime.07/28/2014ctive pravastatin (PravachoL) 20 mg tablet Take 20 mg by mouth.03/07/2024ctive Active Problems ProblemNoted DateDiagnosed DateAnemia Of Chronic Renal Pbmgvrm1805/13/2022 Hyperparathyroidism Renal Ripuwobsc47/16/2021hronic Kidney Disease (CKD), Stage 3b Glomerular Filtration Rate (GFR) 30 To [address]/21/2020olitary Kidney Congenital 08/21/2020Osteodystrophy Renal08/21/2020Hypertensive Chronic Kidney Disease With Stage 1 Through Stage 4 Chronic Kidney Disease, Or Unspecified Chronic Kidney Rhhfcum5110/17/2014 Overview (11/11/2016): Hypertension (HTN) NOS Social History Tobacco UseTypesPacks/DayYears UsedDateSmoking Tobacco: FormerComments UnknownSex and Gender InformationValueDate RecordedSex Assigned at BirthNot on fileLegal HlcJephyj76/02/2017 9:49 AM CSTGender IdentityNot on fileSexual OrientationNot on file Last Filed Vital Signs Vital SignReadingTime TakenCommentsBlood Yesqxkcl924/7407 1:03 PM CDT Mvizi107401/02/2025 1:03 PM CDTTemperature--Respiratory Qqfj8189 4:24 PM PROCESS DEVELOPMENT CHEMISTVital sign result from Clinical Notes.Oxygen Saturation--Inhaled Oxygen Concentration--Bxqdjm19.6 kg (104 lb 15 oz)01/02/2025 1:03 PM HZHHwhnub735.8 cm (4' 10.98)01/02/2025 1:03 PM CDTBody Mass Index21.21001/02/2025 1:03 PM CDT Plan of Treatment Health MaintenanceDue DateLast DoneCommentsZoster Vaccines (1 of 2)1989 DTaP,Tdap,and Td Vaccines (1 - Tdap)RSV vaccine - (32-36 weeks) or 50+ years (1 - 1-dose 75+ series)2014Depression Screening (Annual PHQ-2)06/22/2024Fall Risk Screen (Annual)5COVID-19 Vaccine (3 - 2024- season)509/12/2020, 01/14/2021Influenza Vaccine (#1)2025 08/16/2024, 04/08/2023, 03/30/2022, Additional history existsPneumococcal vaccine (50+ years)Tnbwiqmmj15/18/2023, 03/22/2019, 03/31/2018, Additional history existsIPV VaccinesAged OutNo longer eligible based on patient's age to complete this topic Insurance
--- OUTSIDE RECORDS SUMMARY | 2025-06-12 14:58 | XMS_ITS | Clinical Summary ---
Author Organization [facility] Address [address] [place] [address] Care Team Providers Care Skin Grader Name Role Phone José Miguel Morton MD Primary Care Provider [phone] Allergies Active AllergyReactionsCriticalityNoted ZcttTsycpmkdYjjkfydqnju10/24/2020 Dpwqmtjqsp56/24/2020Sulfa Ueivwnwukli24/24/2020 Medications MedicationSigDispense QuantityRefillsLast FilledStart DateEnd DateStatus PRAVASTATIN SODIUM PO Active Social History Tobacco UseTypesPacks/DayYears UsedDateSmoking Tobacco: Never Assessed CommentsUnknownSex and Gender InformationValueDate RecordedSex Assigned at Not on fileLegal LlbBlgjun59/04/2012 3:19 AM CSTGender IdentityNot on fileSexual OrientationNot on file Last Filed Vital Signs Vital SignReadingTime TakenCommentsBlood Dsjuhldq003/7403 6:00 PM CDT Hziwq897309/13/2019 6:00 PM AUKCplxofbwvkx31.7 ??C (98 ??F)09/13/2019 4:29 PM CDT Respiratory Cpuy6671 4:29 PM CDTOxygen Elvhuhofyv35%09/13/2019 7:45 PM CDTInhaled Oxygen Concentration--Weight--Height--Body Mass Index-- Plan of Treatment Not on file Insurance MemberSubscriberPlan / Payer (Effective 2019-Present)Name:Sonido Quita Hilda Relation to Subscriber:SelfName:Quita Head Hilda Payer ID:[id number] (NAIC) Group ID:Not on file Type:HMO Address: [address] Care Teams Team MemberRelationshipSpecialtyStart DateEnd Date José Miguel Morton MD PCP - GeneralFamily Practice09/13/19
[2025-06-12 15:29] VITALS: BP 160/70; PULSE 98; RESP 16; TEMP 36.9; O2SAT 96; BMI 22.0
[2025-06-12 16:10] LABS: Hematocrit* 32.8 % (33.0-51.0); Hemoglobin* 10.2 gm/dL (12.0-16.0); Immature Granulocytes Abs Auto 0.02 K/uL (0.00-0.30); Immature Granulocytes Pct Auto 0.2 %; Mean Corpuscular HGB Conc 31 gm/dL (32-36); Mean Corpuscular Hemoglobin 27 pg (26-34); Mean Corpuscular Volume 87 fL (80-100); RDW Coefficient of Variation % 15.3 % (11.5-15.5); Red Blood Count* 3.77 m/uL (4.00-5.20); White Blood Count* 9.33 K/uL (4.50-11.00)
[2025-06-12 16:11] LABS: Lymphocytes Absolute Auto 1.30 K/uL (0.90-2.90); Slide Review Reflex No
--- NOTE | 2025-06-12 16:29 | ED.GENADULT ---
HPI - General Adult General Date Seen: 06/12/25 Chief complaint: Arrhythmia/Palpitations Stated complaint: Chest pain and rapid heart beat Time Seen by Provider: 06/12/25 15:30 History of Present Illness HPI narrative: Patient is an 85-year-old woman here with palpitations. She did see her primary doctor earlier in May with palpitations, she had as ZIO patch placed and an echo scheduled for early June. 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 She is tearful as she discusses this with me, it is clearly still very new for her. She notes a sensation of her heart pounding, she can feel it in her head, she does not have any lightheadedness or fainting, shortness of breath or other significant symptoms. She acknowledges a history of high anxiety, does not take any medications for it her chart says that she did not tolerate medications. Related Data Home Medications ?Medication ?Instructions ?Recorded ?Confirmed ascorbate calcium (vitamin C) 500 500 mg PO QDAY 05/13/22 06/12/25 mg tablet cholecalciferol (vitamin D3) 25 25 mcg PO QDAY 05/13/22 06/12/25 mcg (1,000 unit) tablet diphenhydramine 25 1 tab PO QHS PRN 05/13/22 06/12/25 mg-acetaminophen 500 mg tablet (Acetaminophen PM Extra Strength) multivitamin 1 tab PO QAM 01/02/25 06/12/25 Previous Rx's ?Medication ?Instructions ?Recorded pravastatin 20 mg tablet 20 mg PO DAILY #90 tabs 10/11/24 Allergies Allergy/AdvReac Type Severity Reaction Status Date / Time rabeprazole Allergy Severe Hives Verified 05/23/25 13:32 atorvastatin AdvReac Mild Muscle Pain Verified 05/23/25 13:32 Sulfa (Sulfonamide AdvReac Mild Nausea Verified 05/23/25 13:32 Antibiotics) tramadol AdvReac Mild Nausea Verified 05/23/25 13:32 ezetimibe AdvReac Muscle Pain Verified 05/23/25 13:32 pravastatin AdvReac Muscle Pain Verified 05/23/25 13:32 Review of Systems Status of ROS: Reports: 10 or more systems reviewed and unremarkable except as noted in History and below PFSH [facility] Medical History Frequent PVCs ?I49.3 - Ventricular premature depolarization (ICD-10) Hyperparathyroidism due to renal insufficiency ?N25.81 - Secondary hyperparathyroidism of renal origin (ICD-10) White coat syndrome without hypertension ?R03.0 - Elevated blood-pressure reading, without diagnosis of hypertension (ICD-10) History of vitamin D deficiency ?Z86.39 - Personal history of other endocrine, nutritional and metabolic disease (ICD-10) Renal agenesis, 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 - Renal agenesis, unilateral (ICD-10) BERTO (generalized anxiety disorder) ?F41.1 - Generalized anxiety disorder (ICD-10) GERD (gastroesophageal reflux disease) ?K21.9 - Gastro-esophageal reflux disease without esophagitis (ICD-10) Osteoporosis ?M81.0 - Age-related osteoporosis without current pathological fracture (ICD-10) Anemia in stage 3b chronic kidney disease ?N18.32 - Chronic kidney disease, stage 3b (ICD-10) ?D63.1 - Anemia in chronic kidney disease (ICD-10) HTN (hypertension) ?I10 - Essential (primary) hypertension (ICD-10) Bilateral primary osteoarthritis of knee ?M17.0 - Bilateral primary osteoarthritis of knee (ICD-10) Dyslipidemia ?E78.5 - Hyperlipidemia, unspecified (ICD-10) Surgical History History of lumbar surgery (1999) ?Z98.890 - Other specified postprocedural states (ICD-10) Family History Sister Depression Family/Other Seizure disorder Social History Narrative: , [place] 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 Does not exercise Lifetime nonsmoker Rare alcohol use What is your current living situation?: I presently have a place to live Problems where you live: no known problems In the past 12 months, utilities in danger of being shut off: no In past 12 months, lack of transportation kept you from medical appts, meetings, work, or getting things needed for daily living: no In the past 12 mos, have been you worried that your food would run out before you had money to buy more?: never true In the past 12 mos, the food you bought just didn't last and you didn't have money to buy more?: never true How often does anyone, including family, friends and others, physically hurt you: never How often does anyone, including family, friends and others, insult or talk down to you: never How often does anyone, including family, friends and others, threaten you with harm: never How often does anyone, including family, friends and others, scream or curse at you: never Exam Narrative: Exam Narrative: Vital signs reviewed In general, an alert, nontoxic Head: Normocephalic, atraumatic. Eyes: Sclera clear. Pupils equal and reactive. ENT: Mucous membranes moist. Neck: Supple without adenopathy. Heart: Regular rate and rhythm without murmur. Lungs: Clear. No increased work of breathing, crackles or wheezes. Abdomen: Soft, nontender to palpation. Extremities: Well perfused, pulses intact. No significant edema. Neurologic: Alert, conversant. Speech fluent, face symmetric. Moves all extremities equally. Skin: Warm, dry well perfused. Affect: Tearful. Const: Vital Signs, click to edit/add: Vital Signs - 24 hr 06/12/25 15:29 06/12/25 16:38 06/12/25 16:45 Temperature 98.5 F Pulse Rate [Pulse Oximeter] 98 Respiratory Rate 16 18 12 Blood Pressure [Ri ght Upper Arm] 160/70 H Pulse Oximetry 96 Oxygen Delivery Me thod Room Air Course Course ED Course: Patient presents with palpitations, I did review her ZIO patch. She had 1 run of 8 beats of V-tach, otherwise occasional PVCs, no other significant findings. I will check some basic labs, make sure she is not profoundly anemic that she does not have significant electrolyte disturbances, or evidence of acute coronary syndrome. Overall, symptoms sound most likely to be benign. She had an EKG here, this shows a sinus rhythm, ventricular rate of 83, no ST segment changes, unremarkable T-waves. Nursing staff did discuss her grief processing with her, she is not interested in talking with anyone else today in terms of mental health assessment. Labs are reviewed in their entirety, they are reassuring. EKG shows a sinus rhythm, ventricular rate of 83, no acute ST segment changes, unremarkable T-waves, normal indices. I had a lengthy conversation with patient and her son about her findings, I do think anxiety is probably a contributor. She is not interested in any treatment for anxiety at this time, but discussed that it is certainly an option if she would like to pursue that with primary care. She is somewhat anemic today, hemoglobin is 10.2 which is a little below her baseline, hematocrit is 32.8. We talked about following that with primary care. Creatinine is 2, this is her baseline. Point of care troponin was 12.4. Patient is stable for discharge home, she will follow-up for her echo and with primary care thereafter. Return any time for severe new symptoms, fainting, the significant chest pain or other worsening. Doses: Palpitations. Recent loss of spouse. Vital Signs Vital signs: Initial Vital Signs Temperature 98.5 F 06/12/25 15:29 Temperature Source Temporal Artery Scan 06/12/25 15:29 Pulse Rate 98 06/12/25 15:29 Respiratory Rate 16 06/12/25 15:29 Blood Pressure 160/70 H 06/12/25 15:29 Blood Pressure Mean 100 06/12/25 15:29 Pulse Oximetry 96 06/12/25 15:29 Oxygen Delivery Method Room Air 06/12/25 15:29 Vital Signs Temperature 98.5 F 06/12/25 15:29 Pulse Rate 98 06/12/25 15:29 Respiratory Rate 16 06/12/25 15:29 Blood Pressure 160/70 H 06/12/25 15:29 Pulse Oximetry 96 06/12/25 15:29 Oxygen Delivery Method Room Air 06/12/25 15:29 Temperature 98.5 F 06/12/25 15:29 Pulse Rate 98 06/12/25 15:29 Respiratory Rate 12 06/12/25 16:45 Blood Pressure 160/70 H 06/12/25 15:29 Pulse Oximetry 96 06/12/25 15:29 Oxygen Delivery Method Room Air 06/12/25 15:29 Medical Decision Making Lab Data Lab results reviewed: Yes I reviewed the patient's lab results Labs: Lab Results 06/12/25 06/12/25 Range/Units 15:51 16:00 WBC 9.33 (4.50-11.00) K/uL RBC 3.77 L (4.00-5.20) m/uL Hgb 10.2 L (12.0-16.0) gm/dL Hct 32.8 L (33.0-51.0) % MCV 87 (80-100) fL MCH 27 (26-34) pg MCHC 31 L (32-36) gm/dL RDW Coeff of Master 15.3 (11.5-15.5) % Plt Count 337 (140-440) K/uL Neut % (Auto) 76.2 H (42.0-72.0) % Lymph % (Auto) 14.0 L (20-44) % Bill[place] % (Auto) 6.3 (0.0-11.0) % Eos % (Auto) 2.9 (0.0-7.0) % Baso % (Auto) 0.4 (0.0-3.0) % Neut # (Auto) 7.10 H (1.7-7.0) K/uL Lymph # (Auto) 1.30 (0.90-2.90) K/uL Bill[place] # (Auto) 0.60 (0.00-0.90) K/UL Eos # (Auto) 0.27 (0.00-0.50) K/uL Baso # (Auto) 0.04 (0.00-0.30) K/uL Abs Immat Gran (auto) 0.02 (0.00-0.30) K/uL Imm/Tot Granulo (auto) 0.2 % Sodium 139 (135-149) mmol/L Potassium 4.7 (3.6-5.1) mmol/L Chloride 110 (96-114) mmol/L Carbon Dioxide 21 (20-32) mmol/L Anion Gap 8 (7-15) mEq/L BUN 42 H (7-30) mg/dL Creatinine 2.0 H (0.5-1.5) mg/dL Estimated Creat Clear 15.76 Estimated GFR 24 ml/min Glucose 121 H (60-115) mg/dL Calcium 9.5 (8.4-10.6) mg/dL Magnesium 2.2 (1.5-2.6) mg/dL POC Troponin I High Sensi 12.4 (2.9-13.0) pg/mL Discharge Plan Discharge Clinical Impression: Palpitations Patient Disposition: Home, Self-Care Condition: Stable Instructions: Heart Palpitations (DC), Premature Ventricular Contractions (ED) Additional Instructions: As discussed, I would recommend you keep your appointment for your echo. Make an appointment to follow up with Dr. Ragland in [place] if you do not already have 1, after this in June so that you can go over results. Your evaluation here in terms of EKG and blood work is all very reassuring. As reviewed, I do think there is a component of situational anxiety that is contributing to some of the symptoms, which is not unexpected given your recent loss. There are options for treatment for this, if you feel that would be helpful, please discuss with primary care. Return any time for acute worsening or if you have new symptoms such as fainting, severe chest pain, or other worsening. Prescriptions: No Action ascorbate calcium (vitamin C) 500 mg tablet 500 mg PO QDAY cholecalciferol (vitamin D3) 25 mcg (1,000 unit) tablet 25 mcg PO QDAY diphenhydramine-acetaminophen [Acetaminophen PM Extra Str] 25-500 mg tablet 1 tab PO QHS PRN multivitamin Tablet 1 tab PO QAM pravastatin 20 mg tablet 20 mg PO DAILY Qty: 90 3RF Follow Up/Referrals: Zuleyka Ayala MD [Primary Care Provider, Family Practice] Stand Alone Forms: [employer] Info Instructions
[2025-06-12 16:34] LABS: Chloride* 110 mmol/L (96-114); Potassium* 4.7 mmol/L (3.6-5.1); Sodium* 139 mmol/L (135-149)
[2025-06-12 16:37] LABS: Anion Gap 8 mEq/L (7-15); Blood Urea Nitrogen* 42 mg/dL (7-30); Calcium* 9.5 mg/dL (8.4-10.6); Carbon Dioxide* 21 mmol/L (20-32); Creatinine* 2.0 mg/dL (0.5-1.5); Est. Creatinine Clearance* 15.76; Estimated Glomerular Filt Rate 24 ml/min; Glucose* 121 mg/dL (60-115)
[2025-06-12 16:38] VITALS: RESP 18
[2025-06-12 16:45] VITALS: RESP 12
== END 2025-06-12 17:15 | disposition home or self-care (01) ==
PROVIDERS: Emergency Provider Emergency Medicine; PCP Family Medicine
DX: R00.2 Palpitations (principal)
CPT/HCPCS: 36415; 80048; 83735; 84484; 85025; 93005; 94761; 99284